=== PATIENT | male | born 1980 | race Hispanic/Latino ===

== ENCOUNTER 2023-02-14 11:56 | Emergency (ER) | payer OTHER ==
[~2023-02-14] VITALS: Ht 180.3 cm; Wt 90.7 kg
[2023-02-14 12:00] VITALS: BP 121/88
== END 2023-02-14 13:26 | disposition left against medical advice (07) ==
LOC: EDH 11:56
DX: R10.9 Unspecified abdominal pain (principal); Z53.21 Procedure and treatment not carried out due to patient leaving prior to being seen by health care provider
CPT/HCPCS: 99281

== ENCOUNTER → 2023-06-07 | Outpatient (CLI) | payer OTHER | END | disposition home or self-care (01) | LOC: RAH 16:05 | PROVIDERS: ATTEND Family Medicine | DX: I80.01 Phlebitis and thrombophlebitis of superficial vessels of right lower extremity (principal) | CPT/HCPCS: 93971 ==